=== PATIENT | female | born 1960 | race Caucasian/White ===

== ENCOUNTER → 2017-07-12 | Outpatient (CLI) | payer OTHER | END | disposition home or self-care (01) | LOC: CDC 09:17 | DX: Z01.810 Encounter for preprocedural cardiovascular examination (principal); M16.11 Unilateral primary osteoarthritis, right hip; I10 Essential (primary) hypertension | CPT/HCPCS: 93000 ==

== ENCOUNTER → 2017-07-19 | Outpatient (CLI) | payer OTHER | END | disposition home or self-care (01) | DX: M16.11 Unilateral primary osteoarthritis, right hip (principal); R26.2 Difficulty in walking, not elsewhere classified; M25.551 Pain in right hip; M25.651 Stiffness of right hip, not elsewhere classified; M62.81 Muscle weakness (generalized); Z74.1 Need for assistance with personal care | CPT/HCPCS: 97161 GP; 97165 GO; 97530 GP; 97535 GO ==

== ENCOUNTER 2017-07-31 21:47 | Inpatient (IN) | payer OTHER ==
[~2017-07-31] VITALS: Ht 162.6 cm; Wt 111.5 kg
[~2017-07-31 21:47] MED LIST: ADVIL PM1 TABLET PO; ALPHA LIPOIC A600 MG PO; AZELASTINE137 MCG/0. BOTH NARES; CLARITIN,ALAVAR10 MG PO; FLONASE16 G1 BOTH NARES; HYOSCYAMINE0.125 M2 PO; KRILL OIL 5001 EACH PO; LEVOTHYROXINE112 MCG PO; LOSARTAN-HCTZ1 EACH PO; OMEPRAZOLE40 M1 PO; PERCOCET 7.51 TABLET PO; SPIRULINA500 MG PO; SUPER B COMPL400 MCG PO; TIZANIDINE HCL4 M1 PO; TRAMADOL HCL300 MG PO; TUMERSAID TABL1 EACH PO; TYLENOL PM EX-1 EACH PO; VALACYCLOVIR1000 MG PO; VITAMIN D32000 UNI1 PO; [UNRECOGNIZED DRUG - OTHER] PO; [UNRECOGNIZED DRUG - OTHER] PO; [UNRECOGNIZED DRUG - OTHER] PO; [UNRECOGNIZED DRUG - OTHER] PO; [UNRECOGNIZED DRUG - OTHER] PO
[2017-08-01 07:40] VITALS: BP 134/63
[2017-08-01 08:45] VITALS: BP 134/63
[2017-08-01 13:08] LABS: HEMATOCRIT 36.4 % (36.0-46.0); HEMOGLOBIN 11.9 G/DL (11.9-15.5); MCH 28.9 PG (29.0-34.0); MCHC 32.7 G/DL (30.0-36.0); MCV 88.3 FL (83-99); PLATELET COUNT 241 K/uL (156-360); RBC DIS.WIDTH-CV 13.9 % (11.8-14.6); RED BLOOD COUNT 4.12 M/uL (3.80-5.20); WHITE BLOOD COUNT 6.9 K/uL (4.1-10.2)
[2017-08-01 13:31] VITALS: BP 130/59
[2017-08-01 15:49] VITALS: BP 130/68
[2017-08-01 20:14] VITALS: BP 146/67
[2017-08-02 00:10] VITALS: BP 133/63
[2017-08-02 04:12] VITALS: BP 109/55
[2017-08-02] MEDS ORDERED: LYRICA100 MG PO (05:29)
[2017-08-02 06:16] LABS: HEMATOCRIT 34.5 % (36.0-46.0); HEMOGLOBIN 11.5 G/DL (11.9-15.5); MCV 86.7 FL (83-99)
[2017-08-02 06:41] LABS: CHLORIDE 103 MEQ/L (99-109); CREATININE 0.7 MG/DL (0.6-1.3); GFR ESTIMATE (CALCULATED) > 59 mL/min/; GLUCOSE 112 mg/dL (70-99); POTASSIUM 3.7 MEQ/L (3.7-5.4); SODIUM 140 MEQ/L (136-147); UREA NITROGEN (BUN) 11 mg/dL (9-23)
[2017-08-02 08:25] VITALS: BP 118/62
[2017-08-02 12:23] VITALS: BP 92/50
[2017-08-02 16:02] VITALS: BP 119/56
[2017-08-02 19:59] VITALS: BP 126/55
[2017-08-03 00:30] VITALS: BP 96/52
[2017-08-03 04:30] VITALS: BP 99/59
[2017-08-03 08:00] VITALS: BP 74/42
[2017-08-03] MEDS ORDERED: ELIQUIS2.5 MG PO (08:55)
[2017-08-03] MEDS ORDERED: OXYCODONE-APAP1 EACH PO (08:55)
[2017-08-03 08:59] VITALS: BP 110/56
[2017-08-03 12:33] VITALS: BP 121/63
== END 2017-08-03 14:40 | disposition home health service (06) | DRG 470 ==
LOC: ENRESERV 21:47 → 2SOUTH 08-01 06:35 → 3WEST 08-01 13:20 → 2SOUTH 08-01 16:09 → 3WEST 08-03 14:40
PROVIDERS: Orthopaedic Surgery
PROC: 0SR90JA Replacement of Right Hip Joint with Synthetic Substitute, Uncemented, Open Approach (ICD-10-PCS; principal; 2017-08-01)
DX: M16.11 Unilateral primary osteoarthritis, right hip (principal); G89.29 Other chronic pain; M54.5 Low back pain; K21.9 Gastro-esophageal reflux disease without esophagitis; I10 Essential (primary) hypertension; M79.7 Fibromyalgia; E03.9 Hypothyroidism, unspecified; F41.9 Anxiety disorder, unspecified; F32.9 Major depressive disorder, single episode, unspecified; F43.10 Post-traumatic stress disorder, unspecified; E66.01 Morbid (severe) obesity due to excess calories; Z79.891 Long term (current) use of opiate analgesic; Z88.2 Allergy status to sulfonamides; Z91.81 History of falling; Z68.41 Body mass index [BMI] 40.0-44.9, adult
CPT/HCPCS: 73501; 80048; 85014; 85018; 85027; J0690; J1170; J2250; J2405; J7030; J7050; S0020